=== PATIENT | female | born 1960 | race Caucasian/White ===

== ENCOUNTER 2020-10-01 09:31 | Day surgery (SDC) | payer OTHER ==
[2020-10-01] MEDS ORDERED: Sodium Chloride 0.9% 1,000 ML IV SCH (10:00)
[2020-10-01] MEDS ORDERED: Midazolam 1 MG/ML 2 ML SDV ONE ×2 (10:16→10:27)
[2020-10-01] MEDS ORDERED: fentaNYL 100 MCG/2 ML SDV ONE ×2 (10:16→10:27)
[2020-10-01] MEDS ORDERED: Propofol 200 MG/20 ML SDV ONE ×2 (10:16→10:27)
[2020-10-01] MEDS ORDERED: Ondansetron 4 MG/2 ML SDV ONE (10:43)
[2020-10-01] MEDS ORDERED: Dexamethasone 4 MG/ML SDV ONE (10:43)
--- NOTE | 2020-10-01 14:20 | OR ---
DATE OF PROCEDURE: 10/01/2020 SURGEON: Ameya Blackburn MD PROCEDURE: Colonoscopy. FINDINGS: Diverticulosis, mild, limited to sigmoid colon. COMPLICATIONS: None. 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 ANESTHESIA: MAC. PREOPERATIVE DIAGNOSIS: Screening colonoscopy. POSTOPERATIVE DIAGNOSIS: Screening colonoscopy. RISKS: Risks, benefits, alternatives, and limitations including, but not limited to infection, bleeding, perforation, and false positives and false negatives were explained to the patient who wished to proceed. PROCEDURE IN DETAIL: The patient was placed in left lateral decubitus position. Digital rectal exam was performed without abnormality. Scope was introduced and advanced atraumatically to the ileocecal valve. Scope was brought back to the ascending, transverse, descending colon, and retroflexed. No evidence of old or new blood. No masses. No polyps. No colitis. No abnormalities on retroflexion. The diverticulosis would be described as mild, limited to sigmoid colon without evidence of diverticulitis. Greater than 8 minutes was spent removing the scope. The patient tolerated the procedure well, and the prep was acceptable with 90% of the luminal surface. Ameya Blackburn MD /[id number]
== END 2020-10-01 12:05 | disposition home or self-care (01) ==
LOC: JP.SDS 09:31
PROVIDERS: ATTEND Surgery
DX: Z12.11 Encounter for screening for malignant neoplasm of colon (principal); K57.30 Diverticulosis of large intestine without perforation or abscess without bleeding; E11.9 Type 2 diabetes mellitus without complications
CPT/HCPCS: 45378; J1100; J2250; J2405; J2704; J3010; J7030

== ENCOUNTER 2021-05-05 03:12 | Emergency (ER) | payer OTHER ==
--- NOTE | 2021-05-05 04:39 | EDM.PDOC ---
ED HPI GENERAL MEDICAL PROBLEM - General Chief Complaint: Syncope Stated Complaint: FAINTED TWICE Time Seen by Provider: 05/05/21 04:20 Source of Information: Reports: Patient, Old Records, RN History Limitations: Reports: No Limitations - History of Present Illness INITIAL COMMENTS - FREE TEXT/NARRATIVE: 60 yo diabetic female had a low grade fever at suppertime last night. After that she felt OK. She slept until she awoke needing to go to the bathroom. On the way back to her bed from the bathroom she passed out twice. On the way to the ER she walked without issue. Has had a bit of a cough lately, nonproductive. No black or bloody stools. No vomiting. No hx of syncope. Her BS at home after she passed out was 190. She did not injure herself in the [place]. Is here with her . She took Nyquil before bedtime that has acetaminophen in it. Onset Date: 05/04/21 Duration: Hour(s):, Waxing/Waning Location: Reports: Generalized Quality: Reports: Other (pain is not reported) Severity: Moderate (syncope severity) Improves with: Reports: Rest Worsens with: Reports: Other (? vertical position) Context: Reports: Other (see HPI) Associated Symptoms: Reports: Cough (mild), Fever/Chills (low grade fever early last evening). 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 (see below) (none) - Related Data Allergies Allergy/AdvReac Type Severity Reaction Status Date / Time No Known Allergies Allergy Verified 05/05/21 04:50 Home Meds: Home Meds Anastrozole [Arimidex] 1 mg PO DAILY 09/28/20 [History] Aspirin [Adult Low Dose Aspirin EC] 81 mg PO DAILY 09/28/20 [History] Cholecalciferol (Vitamin D3) [Vitamin D3] 1,000 unit PO DAILY 09/28/20 [History] Dulaglutide [Trulicity] 0.75 mg SQ DAILY 09/28/20 [History] [place]-3/DHA/Epa/Fish Oil [[place] 3 500 Softgel] 1,000 each PO DAILY 09/28/20 [History] Simvastatin [Zocor] 20 mg PO BEDTIME 09/28/20 [History] Vit C/Rut/Hesp Cmp/Bioflav,Cit [Special C 500 mg Tablet] 1 each PO DAILY 09/28/20 [History] lisinopriL [Lisinopril] 5 mg PO DAILY 09/28/20 [History] metFORMIN [Glucophage XR] 1,000 mg PO BID 09/28/20 [History] Past Medical History HEENT History: Reports: None Cardiovascular History: Reports: High Cholesterol, Hypertension 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: Neurological History: Reports: Concussion Endocrine/Metabolic History: Reports: Diabetes, Type II Oncologic (Cancer) History: Reports: Breast Dermatologic History: Reports: None - Infectious Disease History Infectious Disease History: Reports: Chicken Pox, Shingles - Past Surgical History HEENT Surgical History: Reports: Oral Surgery Cardiovascular Surgical History: Reports: None Respiratory Surgical History: Reports: None Female Surgical History: Reports: Tubal Ligation, Other (See Below) Other Female Surgeries/Procedures: double mastectomy for breast cancer Endocrine Surgical History: Reports: None Neurological Surgical History: Reports: None Dermatological Surgical History: Reports: Skin Graft Social & Family History - Family History Family Medical History: No Pertinent Family History - Caffeine Use Caffeine Use: Reports: Coffee ED ROS GENERAL - Review of Systems Review Of Systems: See Below Constitutional: Reports: Fever. Denies: Chills HEENT: Reports: No Symptoms Respiratory: Reports: Cough. Denies: Shortness of Breath, Sputum Cardiovascular: Reports: Syncope Endocrine: Reports: No Symptoms GI/Abdominal: Reports: No Symptoms : Reports: No Symptoms Musculoskeletal: Reports: No Symptoms Skin: Reports: No Symptoms Neurological: Reports: No Symptoms - Physical Exam Exam: See Below Exam Limited By: No Limitations General Appearance: Alert, WD/WN, No Apparent Distress Eye Exam: Bilateral Eye: Normal Inspection Ears: Normal External Exam, Normal Canal, Hearing Grossly Normal Nose: Normal Inspection, No Blood Throat/Mouth: Normal Inspection, Normal Lips, Normal Oropharynx, Normal Voice, No Airway Compromise Head Exam: Atraumatic, Normocephalic Neck: Normal Inspection Respiratory/Chest: No Respiratory Distress, Lungs Clear, Normal Breath Sounds, No Accessory Muscle Use Cardiovascular: Regular Rate, Rhythm, No Edema, Tachycardia GI/Abdominal: Normal Bowel Sounds, Soft, Non-Tender, No Distention Neuro Exam (Abbreviated): Alert, Oriented, CN II-XII Intact, Normal Cognition, No Motor/Sensory Deficits Back Exam: Normal Inspection. No: CVA Tenderness (R), CVA Tenderness (L) Extremities: Normal Inspection, Normal Range of Motion, Non-Tender, No Pedal Edema. No: Pedal Edema Psychiatric: Normal Affect, Normal Mood Skin Exam: Warm, Dry, Intact, Normal Color, No Rash Course - Vital Signs Last Recorded V/S: Last Vital Signs Temp 36.8 C 05/05/21 05:25 Pulse 112 H 05/05/21 04:52 Resp 18 05/05/21 04:52 BP 155/88 H 05/05/21 04:52 Pulse Ox 97 05/05/21 04:52 Orthostatic Blood Pressure [ 121/74 Standing] Orthostatic Blood Pressure [ 124/76 Sitting] Orthostatic Blood Pressure [ 132/80 Supine] - Orders/Labs/Meds Orders: Active Orders 24 hr Category Date Time Status Orthostatic Vital Signs [RC] ASDIRECTED Care 05/05/21 04:18 Active Chest 2V [CR] Stat Exams 05/05/21 06:31 Taken CULTURE BLOOD [BC] Stat Lab 05/05/21 05:04 Ordered D-DIMER QUANTITATIVE [COAG] Stat Lab 05/05/21 04:04 Stop Req REFLEX LACTIC ACID YES OR NO [CHEM] Routine Lab 05/05/21 04:51 Received Labs: Laboratory Tests 05/05/21 05/05/21 05/05/21 Range/Units 04:04 04:04 04:04 WBC 7.7 (4.5-11.0) K/uL RBC 5.13 (3.30-5.50) M/uL Hgb 13.4 (12.0-15.0) g/dL Hct 42.9 (36.0-48.0) % MCV 84 (80-98) fL MCH 26 L (27-31) pg MCHC 31 L (32-36) % Plt Count 403 H (150-400) K/uL Sodium 137 L (140-148) mmol/L Potassium 3.6 (3.6-5.2) mmol/L Chloride 99 L (100-108) mmol/L Carbon Dioxide 26 (21-32) mmol/L Anion Gap 15.6 H (5.0-14.0) mmol/L BUN 8 (7-18) mg/dL Creatinine 0.8 (0.6-1.0) mg/dL Est Cr Clr Drug Dosing 54.39 mL/min Estimated GFR (MDRD) > 60 (>60) Glucose 194 H (74-106) mg/dL Lactic Acid (0.4-2.0) mmol/L Calcium 9.3 (8.5-10.1) mg/dL Troponin I High Sens 4.6 (<=60.3) pg/mL TSH, Ultra Sensitive 2.469 (0.358-3.740) uIU/mL Urine Color (YELLOW) Urine Appearance (CLEAR) Urine pH (5.0-8.0) Ur Specific Craig (1.008-1.030) Urine Protein (NEGATIVE) mg/dL Urine Glucose (UA) (NEGATIVE) mg/dL Urine Ketones (NEGATIVE) mg/dL Urine Occult Blood (NEGATIVE) Urine Nitrite (NEGATIVE) Urine Bilirubin (NEGATIVE) Urine Urobilinogen (0.2-1.0) EU/dL Ur Leukocyte Esterase (NEGATIVE) Urine RBC (0-5) Urine WBC (0-5) Ur Epithelial Cells Amorphous Sediment Urine Bacteria Urine Mucus 05/05/21 05/05/21 Range/Units 04:07 05:09 WBC (4.5-11.0) K/uL RBC (3.30-5.50) M/uL Hgb (12.0-15.0) g/dL Hct (36.0-48.0) % MCV (80-98) fL MCH (27-31) pg MCHC (32-36) % Plt Count (150-400) K/uL Sodium (140-148) mmol/L Potassium (3.6-5.2) mmol/L Chloride (100-108) mmol/L Carbon Dioxide (21-32) mmol/L Anion Gap (5.0-14.0) mmol/L BUN (7-18) mg/dL Creatinine (0.6-1.0) mg/dL Est Cr Clr Drug Dosing mL/min Estimated GFR (MDRD) (>60) Glucose (74-106) mg/dL Lactic Acid 3.1 H (0.4-2.0) mmol/L Calcium (8.5-10.1) mg/dL Troponin I High Sens (<=60.3) pg/mL TSH, Ultra Sensitive (0.358-3.740) uIU/mL Urine Color Yellow (YELLOW) Urine Appearance Cloudy A (CLEAR) Urine pH 5.5 (5.0-8.0) Ur Specific Craig 1.025 (1.008-1.030) Urine Protein Negative (NEGATIVE) mg/dL Urine Glucose (UA) Negative (NEGATIVE) mg/dL Urine Ketones 15 H (NEGATIVE) mg/dL Urine Occult Blood Negative (NEGATIVE) Urine Nitrite Negative (NEGATIVE) Urine Bilirubin Negative (NEGATIVE) Urine Urobilinogen 0.2 (0.2-1.0) EU/dL Ur Leukocyte Esterase Small H (NEGATIVE) Urine RBC 0-5 (0-5) Urine WBC 5-10 H (0-5) Ur Epithelial Cells Moderate Amorphous Sediment Not seen Urine Bacteria Few Urine Mucus Many Meds: Medications Discontinued Medications Generic Name Dose Route Start Last Admin Trade Name Freq PRN Reason Stop Dose Admin Acetaminophen 1,000 mg 05/05/21 05:05 05/05/21 05:45 Acetaminophen 500 Mg Tab PO 05/05/21 05:06 1,000 mg ONETIME ONE Administration Lactated Ringer's 1,000 mls @ 1,000 mls/hr 05/05/21 05:04 05/05/21 05:44 Ringers, Lactated IV 05/05/21 06:03 1,000 mls/hr BOLUS ONE Administration - Radiology Interpretation Free Text/Narrative:: CXR-neg - Re-Assessments/Exams Free Text/Narrative Re-Assessment/Exam: 05/05/21 07:03 HR down to 89 after a liter of IV fluids. Feels fine. CXR neg Departure - Departure Time of Disposition: 07:04 Disposition: Home, Self-Care 01 Condition: Good Clinical Impression: Mild dehydration - Discharge Information *PRESCRIPTION DRUG MONITORING PROGRAM REVIEWED*: Not Applicable *COPY OF PRESCRIPTION DRUG MONITORING REPORT IN PATIENT LYNN: Not Applicable Instructions: Dehydration, Adult, [id number] Referrals: PCP,None [Primary Care Provider] - Forms: ED Department Discharge Additional Instructions: Drink enough fluids so that your urine is light yellow in color. Acetaminophen as needed for fever control. Return if you become SOB, high fever, nausea or anything else that concerns you. Sepsis Event Note (ED) - Focused Exam Vital Signs: Vital Signs Temp Pulse Resp BP Pulse Ox 05/05/21 05:25 36.8 C 05/05/21 04:52 36.7 C 112 H 18 155/88 H 97 05/05/21 04:26 36.7 C 112 H 18 155/88 H 97 - My Orders Last 24 Hours: My Active Orders 05/05/21 04:04 D-DIMER QUANTITATIVE [COAG] Stat 05/05/21 04:18 Orthostatic Vital Signs [RC] ASDIRECTED 05/05/21 04:51 REFLEX LACTIC ACID YES OR NO [CHEM] Routine 05/05/21 05:04 CULTURE BLOOD [BC] Stat 05/05/21 06:31 Chest 2V [CR] Stat - Assessment/Plan Last 24 Hours: My Active Orders 05/05/21 04:04 D-DIMER QUANTITATIVE [COAG] Stat 05/05/21 04:18 Orthostatic Vital Signs [RC] ASDIRECTED 05/05/21 04:51 REFLEX LACTIC ACID YES OR NO [CHEM] Routine 05/05/21 05:04 CULTURE BLOOD [BC] Stat 05/05/21 06:31 Chest 2V [CR] Stat
[2021-05-05] MEDS ORDERED: Lactated Ringers 1,000 ML IV ONE (05:04)
[2021-05-05] MEDS ORDERED: Acetaminophen 500 MG Tab PO ONE (05:05)
--- NOTE | 2021-05-05 07:45 | CRLCR ---
For Patients: As a result of the Cures Act, medical imaging exams and procedure reports are released immediately into your electronic medical record. You may view this report before your referring provider. If you have questions, please contact your health care provider. Indication: Cough and fever Comparison: None available. Technique: PA and Lateral views chest Findings: There is mild interstitial prominence without evidence of dense consolidation or effusion. A situs lobe is seen in the medial right upper quadrant. The cardiomediastinal silhouette is within normal limits. The bony thorax is grossly intact. Impression: Mild interstitial prominence without evidence of dense consolidation which may represent mild bronchitis changes. Dictated by Gokul Dsouza MD @ 05/05/2021 7:44:44 AM (Electronically Signed)
== END 2021-05-05 09:09 | disposition home or self-care (01) ==
LOC: JP.ED 03:12
DX: E86.0 Dehydration (principal); E78.00 Pure hypercholesterolemia, unspecified; I10 Essential (primary) hypertension; E11.9 Type 2 diabetes mellitus without complications; Z79.82 Long term (current) use of aspirin; Z79.84 Long term (current) use of oral hypoglycemic drugs; Z79.899 Other long term (current) drug therapy
CPT/HCPCS: 36415; 71046; 80048; 81001; 83605; 84443; 84484; 85027; 85379; 87040; 99284; A9270; J7120

== ENCOUNTER 2021-05-11 09:33 | Emergency (ER) | payer OTHER ==
--- NOTE | 2021-05-11 11:05 | EDM.PDOC ---
ED HPI GENERAL MEDICAL PROBLEM - General Chief Complaint: Respiratory Problem Stated Complaint: COUGH, NAUSEA, WEAKNESS Time Seen by Provider: 05/11/21 10:30 Source of Information: Reports: Patient History Limitations: Reports: No Limitations - History of Present Illness INITIAL COMMENTS - FREE TEXT/NARRATIVE: 60-year-old female, unvaccinated for Covid, has symptoms of Covid-like illness for the past week. Dizziness and lightheadedness, she was actually evaluated in the emergency room for syncopal episode and was diagnosed with "mild dehydration". Since that time she has developed some shortness of breath, body aches, loss of smell and her has become ill as well with typical Covid symptoms. They are both in to be tested and treated if possible. She is mildly tachycardic but otherwise very stable, no respiratory difficulties. Onset: Gradual Duration: Day(s): (7 days of symptoms) Associated Symptoms: Reports: Cough, Malaise, Syncope, Weakness - Related Data Allergies Allergy/AdvReac Type Severity Reaction Status Date / Time No Known Allergies Allergy Verified 05/11/21 10:22 Home Meds: Home Meds Anastrozole [Arimidex] 1 mg PO DAILY 09/28/20 [History] Aspirin [Adult Low Dose Aspirin EC] 81 mg PO DAILY 09/28/20 [History] Cholecalciferol (Vitamin D3) [Vitamin D3] 1,000 unit PO DAILY 09/28/20 [History] Dulaglutide [Trulicity] 0.75 mg SQ DAILY 09/28/20 [History] [place]-3/DHA/Epa/Fish Oil [[place] 3 500 Softgel] 1,000 each PO DAILY 09/28/20 [History] Simvastatin [Zocor] 20 mg PO BEDTIME 09/28/20 [History] Vit C/Rut/Hesp Cmp/Bioflav,Cit [Special C 500 mg Tablet] 1 each PO DAILY 09/28/20 [History] lisinopriL [Lisinopril] 5 mg PO DAILY 09/28/20 [History] metFORMIN [Glucophage XR] 1,000 mg PO BID 09/28/20 [History] Past Medical History HEENT History: Reports: None Cardiovascular History: Reports: High Cholesterol, Hypertension 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: Neurological History: Reports: Concussion Endocrine/Metabolic History: Reports: Diabetes, Type II Oncologic (Cancer) History: Reports: Breast Dermatologic History: Reports: None - Infectious Disease History Infectious Disease History: Reports: Chicken Pox, Shingles - Past Surgical History HEENT Surgical History: Reports: Oral Surgery Cardiovascular Surgical History: Reports: None Respiratory Surgical History: Reports: None Female Surgical History: Reports: Tubal Ligation, Other (See Below) Other Female Surgeries/Procedures: double mastectomy for breast cancer Endocrine Surgical History: Reports: None Neurological Surgical History: Reports: None Dermatological Surgical History: Reports: Skin Graft Social & Family History - Family History Family Medical History: No Pertinent Family History - Tobacco Use Tobacco Use Status *Q: Never Tobacco User - Caffeine Use Caffeine Use: Reports: Coffee - Recreational Drug Use Recreational Drug Use: No ED ROS GENERAL - Review of Systems Review Of Systems: See Below Constitutional: Reports: Fever (Patient ran a fever 1 week ago, that has resolved), Malaise HEENT: Reports: Other (Lack of smell) Respiratory: Reports: Shortness of Breath (Intermittent shortness of breath, none currently), Cough Cardiovascular: Denies: Chest Pain, Palpitations GI/Abdominal: Reports: No Symptoms Musculoskeletal: Reports: Muscle Pain (Generalized body aches) Skin: Reports: No Symptoms Neurological: Reports: Dizziness, Weakness ED EXAM, GENERAL - Physical Exam Exam: See Below Exam Limited By: No Limitations General Appearance: Alert, No Apparent Distress Eye Exam: Bilateral Eye: Normal Inspection Respiratory/Chest: No Respiratory Distress, Rhonchi (Diffuse scattered rhonchi and expiratory wheezes are heard bilaterally) Cardiovascular: Regular Rate, Rhythm, Tachycardia Extremities: Normal Inspection Neurological: Alert, Oriented, No Motor/Sensory Deficits Psychiatric: Normal Affect, Normal Mood Skin Exam: Warm, Dry Course - Vital Signs Last Recorded V/S: Last Vital Signs Temp 98.0 F 05/11/21 10:20 Pulse 120 H 05/11/21 10:20 Resp 18 05/11/21 10:20 BP 156/82 H 05/11/21 10:20 Pulse Ox 96 05/11/21 10:20 - Orders/Labs/Meds Labs: Laboratory Tests 05/11/21 Range/Units 10:52 SARS CoV-2 RNA Rapid MANJU Positive H Meds: Medications Discontinued Medications Generic Name Dose Route Start Last Admin Trade Name Freq PRN Reason Stop Dose Admin Acetaminophen 650 mg 05/11/21 12:00 Acetaminophen 325 Mg Tab PO ONETIME PRN HEADACHE,CHILLS Casirivimab 600 mg 05/11/21 12:00 05/11/21 12:34 Casirivimab ([id number]) 1,332 Mg/11.1 Ml Vial SUBCUT 05/11/21 12:01 600 mg ONETIME ONE Administration Diphenhydramine HCl 50 mg 05/11/21 12:00 Diphenhydramine 50 Mg/Ml Sdv IVPUSH ONETIME PRN ALLERGIC RXN Epinephrine HCl 0.3 mg 05/11/21 12:00 Epinephrine 1 Mg/Ml Sdv IM ONETIME PRN ALLERGIC RXN Famotidine 20 mg 05/11/21 12:00 Famotidine 20 Mg/2 Ml Sdv IV ONETIME PRN ALLERGIC RXN Imdevimab 600 mg 05/11/21 12:00 05/11/21 12:34 Imdevimab ([id number]) 1,332 Mg/11.1 Ml Vial SUBCUT 05/11/21 12:01 600 mg ONETIME ONE Administration Methylprednisolone Sodium Succinate 125 mg 05/11/21 12:00 Methylprednisolone Sodium Succinate 125 Mg/2 Ml Sdv IVPUSH ONETIME PRN ALLERGIC RXN - Re-Assessments/Exams Free Text/Narrative Re-Assessment/Exam: 05/11/21 11:07 This very likely is Covid in an unvaccinated patient. It will be confirmed and she will be offered monoclonal antibody therapy. 05/11/21 11:28 Covid is positive, patient will receive monoclonal antibody therapy and can return if not improving satisfactorily. Departure - Departure Time of Disposition: 13:30 Disposition: Home, Self-Care 01 Clinical Impression: COVID-19 - Discharge Information Instructions: COVID-19 Referrals: Samantha Bajwa PA-C [Primary Care Provider] - Forms: ED Department Discharge Care Plan Goals: Rest, concentrate on fluids, increase activity as tolerated and return anytime if worsening especially difficulty breathing or you feel like you are not getting enough oxygen. Sepsis Event Note (ED) - Evaluation Sepsis Screening Result: No Definite Risk - Focused Exam Vital Signs: Vital Signs Temp Pulse Resp BP Pulse Ox 05/11/21 10:20 98.0 F 120 H 18 156/82 H 96
[2021-05-11] MEDS ORDERED: Famotidine 20 MG/2 ML SDV IV PRN (12:00)
[2021-05-11] MEDS ORDERED: diphenhydrAMINE 50 MG/ML SDV IVPUSH PRN (12:00)
[2021-05-11] MEDS ORDERED: Acetaminophen 325 MG Tab PO PRN (12:00)
[2021-05-11] MEDS ORDERED: methylPREDNISolone Sodium Succinate 125 MG/2 ML SDV IVPUSH PRN (12:00)
[2021-05-11] MEDS ORDERED: EPINEPHrine 1 MG/ML SDV IM PRN (12:00)
[2021-05-11] MEDS: [UNRECOGNIZED DRUG - OTHER] SUBCUT ONE (12:34)
[2021-05-11] MEDS: [UNRECOGNIZED DRUG - OTHER] SUBCUT ONE (12:34)
== END 2021-05-11 13:35 | disposition home or self-care (01) ==
LOC: JP.ED 09:33
DX: U07.1 COVID-19 (principal); E78.00 Pure hypercholesterolemia, unspecified; I10 Essential (primary) hypertension; E11.9 Type 2 diabetes mellitus without complications; Z79.82 Long term (current) use of aspirin; Z79.84 Long term (current) use of oral hypoglycemic drugs; Z79.899 Other long term (current) drug therapy
CPT/HCPCS: 87635; 99284; M0243; Q0243; U0002

== ENCOUNTER 2024-05-05 08:49 | Inpatient (IN) | payer OTHER ==
[~2024-05-05 08:49] MED LIST: Midazolam 1 MG/ML 2 ML SDV ONE; Propofol 200 MG/20 ML SDV ONE; fentaNYL 100 MCG/2 ML SDV ONE
[2024-05-05] MEDS ORDERED: fentaNYL 100 MCG/2 ML SDV ONE (09:09)
[2024-05-05] MEDS ORDERED: Docusate Sodium 100 MG Cap PO PRN (09:11)
[2024-05-05] MEDS ORDERED: Bupivacaine 0.5% 50 ML MDV ONE (09:13)
[2024-05-05] MEDS: Nozin Nasal Sanitizer NASBOTH SCH ×2 (09:52→20:07)
[2024-05-05] MEDS: Scopalamine 1mg/3day Transdermal Patch TOP SCH (10:02)
[2024-05-05 10:09] LABS: HEMATOCRIT 36.5 % (34.3-46.0); MEAN CORPUSCULAR HEMOGLOBIN 28.2 pg (31.6-35.5); MEAN CORPUSCULAR HGB CONC 32.9 g/dL (31.6-35.5); MEAN CORPUSCULAR VOLUME 85.7 fL (81.4-99.0); RED BLOOD CELL COUNT 4.26 M/uL (3.77-5.24); WHITE BLOOD CELL COUNT,WBC 6.4 K/uL (3.2-11.0)
[2024-05-05] MEDS: Lactated Ringers 1,000 ML IV SCH (10:15)
[2024-05-05] MEDS: ceFAZolin 2 GM in Premix Bag 1 BAG IV ONE (10:25)
[2024-05-05 10:30] LABS: A/G RATIO 1.1 (1.2-2.2); ALANINE AMINOTRANSFERASE,ALT 29 U/L (12-78); ALKALINE PHOSPHATASE 57 U/L (46-116); ANION GAP 11.1 mmol/L (5.0-14.0); ASPARTATE AMNIOTRANSFERASE,AST 19 U/L (15-37); BILIRUBIN TOTAL 0.5 mg/dL (0.2-1.0); BLOOD UREA NITROGEN,BUN 11 mg/dL (7-18); CALCIUM 9.4 mg/dL (8.5-10.1); CARBON DIOXIDE,CO2 27 mmol/L (21-32); CHLORIDE,CL 103 mmol/L (100-108); CREATININE 0.8 mg/dL (0.6-1.0); EST CRCL DRUG DOSING (CG) 52.37 mL/min; ESTIMATED GFR 83 mL/min (>60); GLUCOSE RANDOM 142 mg/dL (74-106); POTASSIUM,K 3.7 mmol/L (3.6-5.2); PROTEIN TOTAL,TP 7.5 g/dL (6.4-8.2); SODIUM,NA 141 mmol/L (140-148)
[2024-05-05] MEDS: Tranexamic Acid 730 MG in Sodium Chloride 0.9% 50 ML IV ONE (10:45)
[2024-05-05] MEDS ORDERED: Propofol 200 MG/20 ML SDV ONE (11:27)
[2024-05-05] MEDS ORDERED: Lactated Ringers 1,000 ML ONE (11:27)
[2024-05-05] MEDS: Ketorolac 15 MG/ML SDV IVPUSH PRN (13:28)
[2024-05-05] MEDS: Ondansetron 4 MG/2 ML SDV IVPUSH PRN (13:28)
[2024-05-05] MEDS: Acetaminophen 325 MG Tab PO SCH (14:26)
[2024-05-05] MEDS: Sodium Chloride 0.9% 1,000 ML IV SCH (14:31)
[2024-05-05] MEDS ORDERED: Naloxone 0.4 MG/ML SDV IVPUSH PRN (15:12)
[2024-05-05] MEDS: Metoclopramide 10 MG/2 ML SDV IVPUSH PRN (15:34)
[2024-05-05] MEDS: Morphine 2 MG/ML SYRINGE IVPUSH PRN (15:36)
[2024-05-05] MEDS: SCOPOLAMINE PATCH CHECK TOP SCH (15:45)
[2024-05-05] MEDS: metFORMIN 500 MG Tab PO SCH (17:12)
[2024-05-05] MEDS: ceFAZolin 2 GM in Premix Bag 1 BAG IV SCH (17:13)
[2024-05-05] MEDS: oxyCODONE 5 MG Tab PO PRN ×2 (18:34→20:05)
[2024-05-05] MEDS: Pravastatin 20 MG Tab PO SCH (20:08)
[2024-05-05] MEDS: Famotidine 20 MG Tab PO SCH (20:08)
[2024-05-06 06:09] LABS: HEMATOCRIT 29.2 % (34.3-46.0); HEMOGLOBIN 9.3 g/dL (11.2-15.5); MEAN CORPUSCULAR HEMOGLOBIN 27.7 pg (31.6-35.5); MEAN CORPUSCULAR HGB CONC 31.8 g/dL (31.6-35.5); MEAN CORPUSCULAR VOLUME 86.9 fL (81.4-99.0); RED BLOOD CELL COUNT 3.36 M/uL (3.77-5.24); WHITE BLOOD CELL COUNT,WBC 9.5 K/uL (3.2-11.0)
[2024-05-06] MEDS: Pantoprazole 40 MG Tab.CR PO SCH (07:05)
[2024-05-06] MEDS: Cyanocobalamin (Vitamin B12) 1,000 MCG Tab PO SCH (09:56)
[2024-05-06] MEDS: Enalapril 5 MG Tab PO SCH (09:56)
[2024-05-06] MEDS: Anastrozole 1 MG Tab PO SCH (09:56)
[2024-05-06] MEDS: Fish Oil/Omega-3 Fatty Acids 1 Gm Cap PO SCH (09:58)
[2024-05-06] MEDS: Aspirin 325 MG Tab.EC PO SCH (09:58)
[2024-05-06] MEDS: Cholecalciferol (Vitamin D3) 25 MCG Tab PO SCH (09:59)
[2024-05-06] MEDS: Zolpidem 5 MG Tab PO SCH (20:16)
[2024-05-11] MEDS ORDERED: Non-Formulary Medication 1 Each (Semaglutide [Ozempic] 2 MG/0.75 ML Pen.Injctr) SUBCUT SCH (09:00)
== END 2024-05-07 14:20 | disposition home or self-care (01) | DRG 470 ==
LOC: JP.SDS 08:49 → JP.MS 09:11 → JP.SDS 05-06 14:54
PROVIDERS: ADMIT Specialist; ATTEND Specialist
PROC: 0SR903Z Replacement of Right Hip Joint with Ceramic Synthetic Substitute, Open Approach (ICD-10-PCS; principal; 2024-05-05 10:00)
DX: M16.11 Unilateral primary osteoarthritis, right hip (principal); E78.5 Hyperlipidemia, unspecified
CPT/HCPCS: 01214-QZ; 36415; 72170; 72170-26; 80053; 82947; 85027; 97110-GP; 97116-GP; 97161-GP; 97165-GO; 97530-GP; 97535-GO; A9270-GY; C1713; C1776; J0665; J0690; J1885; J2250; J2270; J2405; J2704; J2765; J3010; J3490; J7030; J7120

== ENCOUNTER 2024-07-21 08:19 | Day surgery (SDC) | payer OTHER ==
[2024-07-21] MEDS ORDERED: Propofol 200 MG/20 ML SDV ONE ×2 (08:22→12:51)
[2024-07-21] MEDS ORDERED: fentaNYL 100 MCG/2 ML SDV ONE ×2 (08:22→12:28)
[2024-07-21] MEDS ORDERED: Midazolam 1 MG/ML 2 ML SDV ONE ×2 (08:22→12:28)
[2024-07-21] MEDS ORDERED: Ondansetron 4 MG/2 ML SDV ONE ×2 (08:34→12:04)
[2024-07-21] MEDS ORDERED: Dexamethasone 4 MG/ML SDV ONE ×2 (08:34→12:04)
[2024-07-21 08:44] LABS: BASOPHILS ABSOLUTE AUTO 0.07 K/uL (0.00-0.10); BASOPHILS PERCENT AUTO 0.8 % (0.1-1.3); EOSINOPHILS ABSOLUTE AUTO 0.16 K/uL (0.00-0.40); EOSINOPHILS PERCENT AUTO 1.7 % (0.0-5.4); HEMATOCRIT 38.8 % (34.3-46.0); HEMOGLOBIN 12.3 g/dL (11.2-15.5); IMMATURE GRAN ABSOLUTE AUTO 0.04 K/uL (0.00-0.23); IMMATURE GRAN PERCENT AUTO 0.4 % (0.0-0.7); LYMPHOCYTES ABSOLUTE AUTO 2.73 K/uL (0.8-3.3); LYMPHOCYTES PERCENT AUTO 29.7 % (11.4-47.7); MEAN CORPUSCULAR HGB CONC 31.7 g/dL (31.6-35.5); MEAN CORPUSCULAR VOLUME 85.3 fL (81.4-99.0); MONOCYTES ABSOLUTE AUTO 0.52 K/uL (0.20-0.90); MONOCYTES PERCENT AUTO 5.7 % (3.3-12.6); NEUTROPHILS ABSOLUTE AUTO 5.66 K/uL (1.0-7.6); NEUTROPHILS PERCENT AUTO 61.7 % (40.0-78.1); PLATELET COUNT,PLT 495 K/uL (130-375); RED BLOOD CELL COUNT 4.55 M/uL (3.77-5.24); WHITE BLOOD CELL COUNT,WBC 9.2 K/uL (3.2-11.0)
[2024-07-21 08:59] LABS: BLOOD UREA NITROGEN,BUN 13 mg/dL (7-18); CALCIUM 9.2 mg/dL (8.5-10.1); CARBON DIOXIDE,CO2 28 mmol/L (21-32); CHLORIDE,CL 102 mmol/L (100-108); CREATININE 0.9 mg/dL (0.6-1.0); ESTIMATED GFR 72 mL/min (>60); GLUCOSE RANDOM 153 mg/dL (74-106); POTASSIUM,K 3.6 mmol/L (3.6-5.2); SODIUM,NA 139 mmol/L (140-148)
[2024-07-21 09:03] LABS: ANION GAP 12.6 mmol/L (5.0-14.0)
[2024-07-21] MEDS: Lactated Ringers 1,000 ML IV SCH (09:40)
[2024-07-21] MEDS: Nozin Nasal Sanitizer NASBOTH SCH ×2 (09:40→20:25)
[2024-07-21] MEDS ORDERED: Scopalamine 1mg/3day Transdermal Patch ONE (12:04)
[2024-07-21] MEDS: ceFAZolin 2 GM in Premix Bag 1 BAG IV ONE (12:10)
[2024-07-21] MEDS ORDERED: oxyCODONE 5 MG Tab PO PRN (12:25)
[2024-07-21] MEDS ORDERED: Magnesium Hydroxide 400 MG/5 ML Susp 30 ML Cup PO PRN (12:26)
[2024-07-21] MEDS ORDERED: Docusate Sodium 100 MG Cap PO PRN (12:26)
[2024-07-21] MEDS ORDERED: Morphine 2 MG/ML SYRINGE IV PRN (12:26)
[2024-07-21] MEDS: Tranexamic Acid 730 MG in Sodium Chloride 0.9% 50 ML IV ONE (12:30)
[2024-07-21] MEDS: Acetaminophen 325 MG Tab PO SCH (15:34)
[2024-07-21] MEDS: oxyCODONE 5 MG Tab PO PRN (15:34)
[2024-07-21] MEDS: Ondansetron 4 MG/2 ML SDV IVPUSH PRN (15:44)
[2024-07-21] MEDS: metFORMIN 500 MG Tab PO SCH (16:21)
[2024-07-21] MEDS: Ketorolac 15 MG/ML SDV IVPUSH PRN (16:24)
[2024-07-21] MEDS: Sodium Chloride 0.9% 1,000 ML IV SCH (16:25)
[2024-07-21] MEDS: ceFAZolin 2 GM in Premix Bag 1 BAG IV SCH (19:17)
[2024-07-21] MEDS: Famotidine 20 MG Tab PO SCH (20:28)
[2024-07-21] MEDS: Pravastatin 20 MG Tab PO SCH (20:29)
[2024-07-22 05:46] LABS: HEMATOCRIT 30.1 % (34.3-46.0); HEMOGLOBIN 9.6 g/dL (11.2-15.5); MEAN CORPUSCULAR HEMOGLOBIN 27.1 pg (31.6-35.5); MEAN CORPUSCULAR HGB CONC 31.9 g/dL (31.6-35.5); RED BLOOD CELL COUNT 3.54 M/uL (3.77-5.24); WHITE BLOOD CELL COUNT,WBC 10.8 K/uL (3.2-11.0)
[2024-07-22] MEDS: Aspirin 325 MG Tab.EC PO SCH (08:45)
[2024-07-22] MEDS: Fish Oil/Omega-3 Fatty Acids 1 Gm Cap PO SCH (08:45)
[2024-07-22] MEDS: Anastrozole 1 MG Tab PO SCH (08:45)
[2024-07-22] MEDS: Multivitamins with Iron/Calcium/Folic Acid/Minerals Tab PO SCH (08:46)
[2024-07-22] MEDS: Cyanocobalamin (Vitamin B12) 1,000 MCG Tab PO SCH (08:46)
[2024-07-22] MEDS: Cholecalciferol (Vitamin D3) 25 MCG Tab PO SCH (08:46)
[2024-07-22] MEDS: Enalapril 5 MG Tab PO SCH (08:47)
[2024-07-22] MEDS: Calcium Carbonate 500 MG Tab.Chew PO SCH (08:47)
[2024-07-22] MEDS ORDERED: Non-Formulary Medication 1 Each (Omeprazole Magnesium [Prilosec Otc] 20 MG Tablet.Dr) PO SCH (09:00)
[2024-07-22] MEDS ORDERED: Zolpidem 5 MG Tab PO SCH (09:00)
[2024-07-22] MEDS ORDERED: Sodium Chloride 0.9% 10 ML Syringe IV PRN (10:36)
[2024-07-23] MEDS ORDERED: OZEMPIC 4 MG/3 ML SQ SCH (09:00)
== END 2024-07-22 16:00 | disposition home or self-care (01) ==
LOC: JP.SDS 08:19 → JP.MS 12:26 → JP.SDS 07-22 16:00
PROVIDERS: ATTEND Specialist
DX: M16.12 Unilateral primary osteoarthritis, left hip (principal); E11.9 Type 2 diabetes mellitus without complications; K21.9 Gastro-esophageal reflux disease without esophagitis
CPT/HCPCS: 01214; 27130; 36415; 72170; 80048; 82947; 85025; 85027; 97161; 97165; 97530; A9270; C1713; C1776; J0690; J1100; J1885; J2250; J2405; J2704; J3010; J7030; J7120